=== PATIENT | male | born 1995 | race Caucasian/White ===

== ENCOUNTER 2022-06-24 11:19 | Inpatient (IN) | payer OTHER, SELFPAY ==
[2022-06-24] MEDS ORDERED: levETIRAcetam 500 MG/5 ML VIAL ONE (11:50)
[2022-06-24] MEDS ORDERED: TETANUS, DIPHTHERIA TOX,ADULT (TDVAX) 0.5 ML VIAL IM ONE (12:49)
[2022-06-24] MEDS ORDERED: hydrALAZINE 20 MG/ML VIAL SLOW IVP PRN (12:49)
[2022-06-24] MEDS ORDERED: Ondansetron PF 4 MG/2 ML Vial IVP PRN (12:49)
[2022-06-24] MEDS ORDERED: Fentanyl 100 MCG/2 ML VIAL ONE (12:57)
[2022-06-24] MEDS ORDERED: Sodium Chloride 0.9% 1,000 ML IV SCH ×3 (13:00→16:23)
[2022-06-24 13:09] LABS: #Eosinphils 0.1 thou/uL (0.0-0.7); #Lymphocytes 1.2 thou/uL (1.20-3.40); #Monocytes 0.7 thou/uL (0.11-0.59); #Neutrophils 14.2 thou/uL (1.40-6.50); %Eosinophils 0.6 % (0.0-10.0); %Lymphocytes 7.2 % (21.0-51.0); %Monocytes 4.4 % (0.0-10.0); %Neutrophils 87.8 % (42.0-75.0); Hemoglobin 14.7 g/dL (14.0-18.0); Mean Corpuscular HGB CONC 34.3 g/dL (32.0-36.0); Mean Corpuscular Hemoglobin 29.9 pg (27.0-31.0); Mean Corpuscular Volume 87.4 fL (78.0-98.0); Mean Platelet Volume 7.5 fL (7.4-10.4); Platelet Count 281 thou/uL (130-400); RBC Distribution Width 11.7 % (11.5-14.5); Red Blood Cell (RBC) Count 4.92 mill/uL (4.70-6.10); White Blood Cell (WBC) Count 16.2 thou/uL (4.8-10.8)
[2022-06-24 13:22] LABS: INR-International Normal Ratio 1.1; Prothrombin Time 13.8 sec (12.0-14.7)
[2022-06-24 13:33] LABS: Anion Gap 12 mmol/L (10-20); BUN (Urea Nitrogen) 13 mg/dL (8.9-20.6); Calc. Creatinine Clearance 0 mL/min (70-130); Calcium 9.4 mg/dL (7.8-10.44); Carbon Dioxide 20 mmol/L (22-29); Chloride 108 mmol/L (98-107); Estimated GFR 115; Glucose 105 mg/dL (70-105); Magnesium 2.1 mg/dL (1.6-2.6); Potassium 3.4 mmol/L (3.5-5.1); Sodium 137 mmol/L (136-145)
[2022-06-24 13:51] LABS: PTT 21.5 sec (22.9-36.1)
[2022-06-24 14:15] LABS: Phosphorus 1.8 mg/dL (2.3-4.7)
[2022-06-24 14:24] LABS: #Eosinphils 0.1 thou/uL (0.0-0.7); #Lymphocytes 1.4 thou/uL (1.20-3.40); #Monocytes 0.6 thou/uL (0.11-0.59); #Neutrophils 12.7 thou/uL (1.40-6.50); %Basophils 0.1 % (0.0-1.0); %Eosinophils 0.5 % (0.0-10.0); %Lymphocytes 9.5 % (21.0-51.0); %Monocytes 4.1 % (0.0-10.0); %Neutrophils 85.8 % (42.0-75.0); Hemoglobin 14.4 g/dL (14.0-18.0); Mean Corpuscular HGB CONC 34.4 g/dL (32.0-36.0); Mean Corpuscular Hemoglobin 30.2 pg (27.0-31.0); Mean Corpuscular Volume 87.9 fL (78.0-98.0); Mean Platelet Volume 7.4 fL (7.4-10.4); Platelet Count 271 thou/uL (130-400); RBC Distribution Width 11.8 % (11.5-14.5); Red Blood Cell (RBC) Count 4.78 mill/uL (4.70-6.10); White Blood Cell (WBC) Count 14.8 thou/uL (4.8-10.8)
[2022-06-24 14:41] LABS: Lactic Acid 1.2 mmol/L (0.5-2.2)
[2022-06-24 14:44] LABS: Troponin I Less than 0.010 ng/mL (< 0.028)
[2022-06-24] MEDS ORDERED: Acetaminophen 500 MG TAB PO SCH ×3 (16:00→23:59)
[2022-06-24] MEDS ORDERED: Morphine 2 MG/ML VIAL SLOW IVP PRN (16:12)
[2022-06-24] MEDS ORDERED: Potassium Phosphate 30 MMOL in Sodium Chloride 0.9% 250 ML 250 ML IVPB SCH (16:15)
[2022-06-24] MEDS ORDERED: Acetaminophen/Codeine 30-300mg Tablet PO SCH (16:45)
[2022-06-24] MEDS ORDERED: Morphine 2 MG/ML VIAL SLOW IVP SCH (16:45)
[2022-06-24 17:04] VITALS: BMI 33.1
[2022-06-24 19:36] LABS: #Eosinphils 0.1 thou/uL (0.0-0.7); #Lymphocytes 1.7 thou/uL (1.20-3.40); #Monocytes 0.6 thou/uL (0.11-0.59); %Basophils 0.4 % (0.0-1.0); %Eosinophils 0.5 % (0.0-10.0); %Lymphocytes 14.9 % (21.0-51.0); %Monocytes 5.3 % (0.0-10.0); Hemoglobin 13.5 g/dL (14.0-18.0); Mean Corpuscular HGB CONC 33.4 g/dL (32.0-36.0); Mean Corpuscular Hemoglobin 29.5 pg (27.0-31.0); Mean Corpuscular Volume 88.1 fL (78.0-98.0); Mean Platelet Volume 7.2 fL (7.4-10.4); Platelet Count 267 thou/uL (130-400); RBC Distribution Width 11.9 % (11.5-14.5); Red Blood Cell (RBC) Count 4.59 mill/uL (4.70-6.10); White Blood Cell (WBC) Count 11.4 thou/uL (4.8-10.8)
[2022-06-24 19:54] LABS: Lactic Acid 0.9 mmol/L (0.5-2.2)
[2022-06-24] MEDS: levETIRAcetam 500 MG TAB PO SCH (21:03)
[2022-06-24] MEDS: Famotidine 20 MG TAB PO SCH (21:03)
[2022-06-24] MEDS: Gabapentin 300 MG CAP PO SCH (21:03)
[2022-06-25] MEDS: Acetaminophen/Codeine 30-300mg Tablet PO SCH ×5 (00:26→23:32)
[2022-06-25 02:42] LABS: Bacteria/HPF None Seen HPF (None Seen); Bilirubin Negative (Negative); Blood, Urine Negative (Negative); Clarity Clear (Clear); Glucose, Urine (Dipstick) Normal (Negative); Ketone, Urine Negative (Negative); Leukocyte Negative Leu/uL (Negative); Nitrite Negative (Negative); Protein, Urine (Dipstick) Negative (Neg-Trace); RBC/HPF 0-3 HPF (0-3); Squamous Epithelial 0-3 HPF (0-3); Urobilinogen Normal mg/dL (Less than 2); WBC/HPF 0-3 HPF (0-3)
[2022-06-25 02:43] LABS: Specific Gravity, Urine 1.046 (1.002-1.036)
[2022-06-25 02:45] LABS: Urine Culture Reflex No No
[2022-06-25 06:46] LABS: #Eosinphils 0.1 thou/uL (0.0-0.7); #Lymphocytes 1.4 thou/uL (1.20-3.40); #Monocytes 0.5 thou/uL (0.11-0.59); #Neutrophils 7.8 thou/uL (1.40-6.50); %Basophils 0.1 % (0.0-1.0); %Eosinophils 1.3 % (0.0-10.0); %Lymphocytes 13.9 % (21.0-51.0); %Neutrophils 79.8 % (42.0-75.0); Mean Corpuscular HGB CONC 34.2 g/dL (32.0-36.0); Mean Corpuscular Hemoglobin 30.4 pg (27.0-31.0); Mean Corpuscular Volume 88.8 fL (78.0-98.0); Mean Platelet Volume 7.5 fL (7.4-10.4); Platelet Count 251 thou/uL (130-400); RBC Distribution Width 11.9 % (11.5-14.5); Red Blood Cell (RBC) Count 4.63 mill/uL (4.70-6.10); White Blood Cell (WBC) Count 9.7 thou/uL (4.8-10.8)
[2022-06-25 07:20] LABS: Anion Gap 14 mmol/L (10-20); BUN (Urea Nitrogen) 8 mg/dL (8.9-20.6); Calc. Creatinine Clearance 168 mL/min (70-130); Calcium 8.5 mg/dL (7.8-10.44); Carbon Dioxide 20 mmol/L (22-29); Chloride 107 mmol/L (98-107); Estimated GFR 108; Glucose 92 mg/dL (70-105); Magnesium 1.9 mg/dL (1.6-2.6); Potassium 3.9 mmol/L (3.5-5.1); Sodium 137 mmol/L (136-145)
[2022-06-25] MEDS: Famotidine 20 MG TAB PO SCH ×2 (08:38→21:44)
[2022-06-25] MEDS: levETIRAcetam 500 MG TAB PO SCH ×2 (08:38→21:46)
[2022-06-25] MEDS: Gabapentin 300 MG CAP PO SCH ×3 (08:38→21:44)
[2022-06-25] MEDS ORDERED: Iopamidol-370 76% 500 ML 1 ML ONE (09:28)
[2022-06-25] MEDS ORDERED: Senokot S 8.6-50 MG TAB PO SCH (10:30)
[2022-06-25] MEDS ORDERED: Morphine 2 MG/ML VIAL SLOW IVP SCH (10:30)
[2022-06-25] MEDS ORDERED: Polyethylene Glycol 3350 17 GM Packet PO SCH (10:30)
[2022-06-25] MEDS: Ibuprofen 200 MG TAB PO SCH ×2 (13:32→21:45)
[2022-06-25] MEDS: Senokot S 8.6-50 MG TAB PO SCH (21:46)
[2022-06-26] MEDS: Acetaminophen/Codeine 30-300mg Tablet PO SCH ×2 (05:14→11:24)
[2022-06-26] MEDS: Ibuprofen 200 MG TAB PO SCH (05:15)
[2022-06-26] MEDS: levETIRAcetam 500 MG TAB PO SCH (08:38)
[2022-06-26] MEDS: Gabapentin 300 MG CAP PO SCH (08:38)
[2022-06-26] MEDS: Famotidine 20 MG TAB PO SCH (08:38)
[2022-06-26] MEDS: Senokot S 8.6-50 MG TAB PO SCH (08:40)
[2022-06-26] MEDS ORDERED: Polyethylene Glycol 3350 17 GM Packet PO SCH (09:00)
[2022-06-26 09:37] VITALS: BP 126/87; TEMP 97.2
== END 2022-06-26 12:27 | disposition home or self-care (01) | DRG 552 ==
LOC: ERS 11:19 → SURG A 14:22
PROVIDERS: ADMIT Surgery; ATTEND Surgery
PROC: 4A10X4Z Monitoring of Central Nervous Electrical Activity, External Approach (ICD-10-PCS; principal; 2022-06-24)
DX: S22.088A Other fracture of T11-T12 vertebra, initial encounter for closed fracture (principal); S32.018A Other fracture of first lumbar vertebra, initial encounter for closed fracture; Z87.891 Personal history of nicotine dependence; V89.2XXA Person injured in unspecified motor-vehicle accident, traffic, initial encounter; Y92.9 Unspecified place or not applicable
CPT/HCPCS: 36415; 70551; 71275; 74174; 80048; 81001; 83605; 83735; 84100; 84146; 84484; 85025; 85610; 85730; 95816; 95819; 95957; 96365; 96366; 96375; J1953; J2270; J3010; J7050; Q9967